=== PATIENT | female | born 1980 | race Caucasian/White ===

== ENCOUNTER 2019-02-06 09:46 | Day surgery (SDC) | payer BC ==
[~2019-02-06 09:46] MED LIST: Lidocaine 1% with EPINEPHrine 1:100,000 50 ML MDV ONE; Sodium Chloride 0.9% 10 ML ONE; Sodium Tetradecyl Sulfate 1% 20 MG/2 ML SDV ONE
[2019-02-06] MEDS ORDERED: Midazolam 1 MG/ML 2 ML SDV ONE ×2 (10:34→12:06)
[2019-02-06] MEDS ORDERED: Propofol 200 MG/20 ML SDV ONE ×4 (10:34→11:51)
[2019-02-06] MEDS ORDERED: fentaNYL 100 MCG/2 ML SDV ONE (10:34)
[2019-02-06] MEDS ORDERED: Sodium Chloride 0.9% 1,000 ML IV SCH (10:45)
[2019-02-06] MEDS: Lidocaine 1% w/EPINEPHrine 50 ML, Sodium Bicarbonate 5 MEQ in Sodium Chloride 0.9% 950 ML INJECT SCH ×2 (11:40→11:55)
[2019-02-06] MEDS ORDERED: Dexamethasone 4 MG/ML SDV ONE (11:47)
[2019-02-06] MEDS ORDERED: Ondansetron 4 MG/2 ML SDV ONE (11:47)
[2019-02-06] MEDS ORDERED: Lactated Ringers 1,000 ML ONE (11:49)
[2019-02-06] MEDS ORDERED: Meperidine PF 25 MG/ML Syringe ONE (12:11)
[2019-02-06] MEDS ORDERED: Meperidine PF 25 MG/ML Syringe IVPUSH ONE (12:12)
--- NOTE | 2019-02-07 07:43 | OR ---
DATE OF PROCEDURE: 02/06/2019 SURGEON: Alexey Brown MD PROCEDURES: 1. Radiofrequency ablation of left greater saphenous vein. 2. Radiofrequency ablation of left lesser saphenous vein. 3. Radiofrequency ablation of right greater saphenous vein. 4. Sclerotherapy of left leg, multiple. 5. Sclerotherapy of right leg, multiple. 6. Compression wrap of left leg (25963). 7. Compression wrap of right leg (99023). COMPLICATIONS: None. THEOLOGY TEACHER: None. ANESTHESIA: MAC/local. PREOPERATIVE DIAGNOSIS: Venous insufficiency with inflammation and pain. POSTOPERATIVE DIAGNOSIS: Venous insufficiency with inflammation and pain. RISKS: Risks, benefits, alternatives, and limitations including, but not limited to infection, bleeding, and DVT formation were explained to the patient, and they wished to proceed. PROCEDURE IN DETAIL: The patient was placed in supine position. The left LSV was accessed first at the ankle using a 21-gauge needle, exchanged for a 35,000th wire, then exchanged for a 7-Bulgarian sheath. RFA probe was advanced to greater than 3 cm from the saphenofemoral junction. Tumescent fluid was injected in a 1-cm jacket around this and verified a second and a third time. Direct even pressure was held as the probe was deployed x2 proximally and distally, and x1 in all other segments. Sheath was then removed and direct pressure was held for 10 minutes and Dermabond was applied. RFA was then performed of the left greater saphenous and right greater saphenous veins in the same manner, same fashion, same technique, in the same sequence, and using the same equipment. Sclerotherapy was then performed of left and right legs, 6 on the right and 3 on the left. This was injected using 0.33% sodium tetradecyl. No more than 2 mL was injected in one location. This was always drawn back to ensure intravenous injection only. Two-layer two-stage compression wrapping was then performed with distal to proximal gradient. This was in [id number] fashion. The patient tolerated the procedure well. Alexey Brown MD /[id number]
== END 2019-02-06 13:30 | disposition home or self-care (01) ==
LOC: JP.SDS 09:46
PROVIDERS: ATTEND Surgery
DX: I87.2 Venous insufficiency (chronic) (peripheral) (principal); Z88.0 Allergy status to penicillin; Z88.1 Allergy status to other antibiotic agents; Z87.891 Personal history of nicotine dependence
CPT/HCPCS: 36471; 36475; 36476; J1100; J1642; J2175; J2250; J2405; J2704; J3010; J7030; J7120; J3490

== ENCOUNTER 2021-03-31 05:58 | Day surgery (SDC) | payer BC ==
[2021-03-31] MEDS ORDERED: Sodium Chloride 0.9% 1,000 ML IV SCH (06:15)
[2021-03-31] MEDS ORDERED: metroNIDAZOLE/Normal Saline 500 MG in Premix Bag 1 BAG IV ONE (06:30)
[2021-03-31] MEDS ORDERED: ceFAZolin 2 GM in Premix Bag 1 BAG IV ONE (07:00)
[2021-03-31] MEDS ORDERED: Ondansetron 4 MG/2 ML SDV ONE (07:20)
[2021-03-31] MEDS ORDERED: Rocuronium 50 MG/5 ML Vial ONE (07:20)
[2021-03-31] MEDS ORDERED: Glycopyrrolate 0.2 MG/ML 5 ML MDV ONE (07:20)
[2021-03-31] MEDS ORDERED: Propofol 200 MG/20 ML SDV ONE (07:20)
[2021-03-31] MEDS ORDERED: Dexamethasone 4 MG/ML SDV ONE (07:20)
[2021-03-31] MEDS ORDERED: Neostigmine Methylsulfate 1 MG/ML 5 ML Syringe ONE (07:20)
[2021-03-31] MEDS ORDERED: fentaNYL 250 MCG/5 ML SDV ONE ×2 (07:20→08:02)
[2021-03-31] MEDS ORDERED: Scopolamine 1.5 MG Transdermal Patch ONE ×2 (07:43)
[2021-03-31] MEDS ORDERED: hydrOXYzine HCL 100 MG/2 ML SDV IM PRN (08:04)
[2021-03-31] MEDS ORDERED: Benzocaine/Cetylpyridinium/Menthol Lozenge MUCMEM PRN (08:04)
[2021-03-31] MEDS ORDERED: Acetaminophen/HYDROcodone 325-5 MG Tab PO PRN (08:04)
[2021-03-31] MEDS ORDERED: Docusate Sodium 100 MG Cap PO PRN (08:04)
[2021-03-31] MEDS ORDERED: Zolpidem 5 MG Tab PO PRN (08:04)
[2021-03-31] MEDS ORDERED: fentaNYL 100 MCG/2 ML SDV IVPUSH PRN ×3 (08:04)
[2021-03-31] MEDS ORDERED: Ondansetron 4 MG/2 ML SDV IVPUSH PRN (08:04)
[2021-03-31] MEDS: Bupivacaine 0.5% 50 ML MDV ONE ×2 (08:23→08:30)
[2021-03-31] MEDS: Lidocaine 1% with EPINEPHrine 1:100,000 50 ML MDV ONE ×2 (08:24→08:30)
[2021-03-31] MEDS ORDERED: Ketorolac 30 MG/ML SDV ONE (08:24)
[2021-03-31] MEDS ORDERED: Scopolamine 1.5 MG Transdermal Patch TOP SCH (08:30)
[2021-03-31] MEDS ORDERED: SCOPOLAMINE PATCH CHECK TOP SCH (09:00)
--- NOTE | 2021-03-31 10:45 | OR ---
DATE OF PROCEDURE: 03/31/2021 SURGEON: Alexey Brown MD PROCEDURE: 1. Bilateral rectus sheath blocks. 2. Bilateral transversus abdominis plane blocks. COMPLICATIONS: None. TENT WORKER: None. RISKS: Risks, benefits, alternatives, and limitations including, but not limited to, infection, bleeding, and injury to abdominal structures were explained to the patient who wished to proceed. PROCEDURE IN DETAIL: The patient was placed in supine position and the left transversus plane was identified 1st. This was accessed using an 18-gauge needle via 13 megahertz ultrasound probe. 20% solution was subsequently injected. The right transversus plane was then injected and addressed next. Bilateral rectus sheaths were injected under direct visualization with 20% solution respectively, injected anterior to the peritoneum. All four procedures were performed in same manner, same fashion, same technique, and the same sequence using the same equipment. At no time was the needle blindly advanced. The patient tolerated the procedure well. Alexey Brown MD /[id number]
--- NOTE | 2021-03-31 13:26 | OR ---
DATE OF PROCEDURE: 03/31/2021 SURGEON: Alexey Brown MD PROCEDURE: Laparoscopic cholecystectomy. COMPLICATIONS: None. ETL APPLICATION DEVELOPER: None. ANESTHETIC: General/local. RISKS: Risks, benefits, alternatives, and limitations including, but not limited to infection, bleeding, perforation, false positives, false negatives were explained to the patient and wished to proceed. We also discussed cystic duct leaks, common bile duct injuries. PROCEDURE IN DETAIL: The patient was placed in supine position. A supraumbilical curvilinear incision was made. A Veress needle was used to enter the abdomen without abnormality. A drop test was performed without abnormality. The abdomen subsequently insufflated. This was followed by an Optiview trocar. The abdomen subsequently insufflated. A 10 and two 5 mm ports were entered under direct visualization. Gallbladder was identified and gallbladder was retracted superiorly and infundibulum retracted inferolaterally. Using blunt dissection, a "clear view" of the gallbladder was obtained, single pulsatile structure entered the gallbladder and a single non-pulsatile structure entered the gallbladder. Cystic duct and artery were subsequently clipped x3 and subsequently transected. There was some bleeding from the artery. Therefore, additional clip was added. The remaining 1/3rd of the gallbladder was removed off the gallbladder bed. The gallbladder was delivered through the superior port without difficulty. The air was removed. The wounds were closed with 3-0 Vicryl and 4-0 Vicryl in interrupted running fashion after being thoroughly irrigated. The patient tolerated procedure well. Alexey Brown MD /[id number]
== END 2021-03-31 12:15 | disposition home or self-care (01) ==
LOC: JP.SDS 05:58
PROVIDERS: ATTEND Surgery
DX: K81.1 Chronic cholecystitis (principal); Z98.890 Other specified postprocedural states; Z88.0 Allergy status to penicillin; Z88.8 Allergy status to other drugs, medicaments and biological substances; Z87.891 Personal history of nicotine dependence
CPT/HCPCS: 36415; 47562; 80053; 81025; 85025; A9270; J0171; J0690; J1100; J1885; J2405; J2704; J2710; J2795; J3010; J3490; J7030